=== PATIENT | female | born 1995 | race Caucasian/White ===

== ENCOUNTER 2020-08-11 12:27 | Emergency (ER) | payer OTHER ==
[~2020-08-11] VITALS: Ht 165.1 cm; Wt 101.7 kg
[2020-08-11 13:33] VITALS: BP 126/66
== END 2020-08-11 13:47 | disposition home or self-care (01) ==
LOC: M ED 12:27
DX: M23.92 Unspecified internal derangement of left knee (principal); W01.0XXA Fall on same level from slipping, tripping and stumbling without subsequent striking against object, initial encounter; Y92.9 Unspecified place or not applicable; Y93.9 Activity, unspecified; Y99.9 Unspecified external cause status

== ENCOUNTER → 2022-02-20 | Outpatient (CLI) | payer OTHER ==
[2022-02-20 13:37] LABS: BASO # 0.1 10^3/uL (0.0-0.2); BASO % 0.4 % (0.0-1.0); EOS # 0.2 10^3/uL (0.0-0.5); EOS % 1.7 % (0.0-3.0); HEMATOCRIT 39.7 % (36.0-47.0); HEMOGLOBIN 13.1 g/dl (12.0-15.5); LYMPH # 3.1 10^3/uL (1.5-5.0); LYMPH % 25.1 % (24.0-44.0); MEAN CORPUSCULAR HEMOGLOBIN 26.1 pg (27.0-33.0); MEAN CORPUSCULAR VOLUME 79.2 fl (80.0-96.0); MONO # 0.6 10^3/uL (0.0-0.8); MONO % 4.8 % (2.0-8.0); NEUTROPHILS # 8.4 10^3/uL (1.5-8.5); NEUTROPHILS % 67.6 % (36.0-66.0); PLATELET COUNT, AUTOMATED 246 10^3/uL (150-450); RED BLOOD COUNT 5.01 10^6/uL (4.00-5.40); WHITE BLOOD COUNT 12.4 10^3/uL (4.0-10.0)
[2022-02-20 14:05] LABS: ERYTHROCYTE SEDIMENTATION RATE 26 mm/hr (0-20)
[2022-02-20 14:07] LABS: ALBUMIN 3.4 GM/DL (3.2-5.2); ALT/SGPT 19 U/L (12-78); BILIRUBIN,TOTAL 0.2 MG/DL (0.2-1.0); BLOOD UREA NITROGEN 9 MG/DL (7-18); CALCIUM LEVEL 8.8 MG/DL (8.5-10.1); CARBON DIOXIDE LEVEL 25 MEQ/L (21-32); CHLORIDE LEVEL 109 MEQ/L (98-107); CHOLESTEROL LEVEL 157 MG/DL (<200); CHOLESTEROL RISK RATIO 5.064 (<5); CREATININE FOR GFR 0.41 MG/DL (0.55-1.30); FREE T4 0.81 NG/DL (0.76-1.46); GLOMERULAR FILTRATION RATE > 60.0 (>60); GLUCOSE, FASTING 97 MG/DL (70-100); HDL CHOLESTEROL 31 MG/DL (>40); LDL CHOLESTEROL 66 MG/DL (<100); NON-HDL-C 126 MG/DL; POTASSIUM SERUM 4.4 MEQ/L (3.5-5.1); SODIUM LEVEL 140 MEQ/L (136-145); TOTAL PROTEIN 6.8 GM/DL (6.4-8.2); TRIGLYCERIDES LEVEL 298 MG/DL (<150)
[2022-02-20 14:44] LABS: HEMOGLOBIN A1c 5.7 %
== END ==
LOC: M LAB 12:12
PROVIDERS: ATTEND Nurse Practitioner Adult Health
DX: E66.9 Obesity, unspecified (principal); N64.4 Mastodynia

== ENCOUNTER → 2022-03-08 | Outpatient (CLI) | payer OTHER | LOC: M WHC 12:48 | PROVIDERS: ATTEND Nurse Practitioner Adult Health | DX: N60.11 Diffuse cystic mastopathy of right breast (principal); N64.4 Mastodynia | CPT/HCPCS: 76642; 77066; G0279 ==

== ENCOUNTER 2022-07-29 10:43 | Emergency (ER) | payer OTHER ==
[~2022-07-29] VITALS: Ht 165.1 cm; Wt 101.9 kg
[2022-07-29 10:44] VITALS: BP 117/57
[2022-07-29] MEDS ORDERED: ALBU8.5H (11:20)
[2022-07-29] MEDS ORDERED: VENTAER INH (14:35)
== END 2022-07-29 14:49 | disposition home or self-care (01) ==
LOC: M ED 10:43
DX: B34.8 Other viral infections of unspecified site (principal); R06.2 Wheezing; Z79.51 Long term (current) use of inhaled steroids

== ENCOUNTER 2022-09-18 19:40 | Outpatient (CLI) | payer OTHER ==
[~2022-09-18] VITALS: Ht 167.6 cm; Wt 104.1 kg
[~2022-09-18 19:40] MED LIST: ALBU8.5H; VENTAER INH
[2022-09-18 19:50] VITALS: BP 133/74
[2022-09-18] MEDS ORDERED: ONDANSETRON 4MG 2ML VIAL IV ONE (21:05)
[2022-09-18] MEDS ORDERED: LR 1,000 ML IV ONE (21:05)
[2022-09-18 21:13] LABS: APPEARANCE, URINE MANUAL CLEAR (CLEAR); BILIRUBIN, URINE MANUAL NEGATIVE (NEGATIVE); BLOOD URINE MANUAL NEGATIVE (NEGATIVE); COLOR, URINE MANUAL YELLOW (YELLOW); GLUCOSE, URINE (UA) MANUAL NEGATIVE (NEGATIVE); KETONE, URINE MANUAL NEGATIVE (NEGATIVE); LEUKOCYTE ESTERASE, URINE MAN TRACE (NEGATIVE); NITRITE, URINE MANUAL NEGATIVE (NEGATIVE); PROTEIN, URINE MANUAL NEGATIVE (NEGATIVE); UROBILINOGEN, URINE MANUAL NORMAL (NORMAL)
[2022-09-18 21:21] LABS: RBC, URINE 0-1 /hpf (0-3); WBC, URINE 0-1 /hpf (0-3)
[2022-09-18 21:22] LABS: BACTERIA, URINE NONE SEEN; HYALINE CAST, URINE NONE SEEN /lpf (0-1); MUCUS, URINE SMALL AMOUNT (NEGATIVE); SQUAMOUS EPITHELIAL CELL URINE MOD AMOUNT /hpf (SMALL AMT)
[2022-09-18] MEDS ORDERED: PRENTAB9 PO (22:13)
[2022-09-18] MEDS ORDERED: CETI5SOL3 PO (22:13)
[2022-09-18] MEDS ORDERED: ACET-907 PO (22:13)
[2022-09-18] MEDS ORDERED: ASPI81CH33 PO (22:13)
[2022-09-18 22:58] VITALS: BP 130/66
== END 2022-09-18 23:18 | disposition home or self-care (01) ==
LOC: M LDO 19:40
PROVIDERS: ATTEND Advanced Practice Midwife
DX: O26.892 Other specified pregnancy related conditions, second trimester (principal); M54.59 Other low back pain; N39.3 Stress incontinence (female) (male); Z87.59 Personal history of other complications of pregnancy, childbirth and the puerperium; Z87.891 Personal history of nicotine dependence; Z79.82 Long term (current) use of aspirin; Z3A.26 26 weeks gestation of pregnancy
CPT/HCPCS: 59025; 76775; 76817; 81000; 81015; 87070; 87086; 96360; 96374; G0378; G0463; J2405

== ENCOUNTER 2022-10-01 20:45 | Emergency (ER) | payer OTHER ==
[~2022-10-01] VITALS: Ht 165.1 cm; Wt 105.1 kg
[~2022-10-01 20:45] MED LIST changes: +ACET-907 PO; +ASPI81CH33 PO; +CETI5SOL3 PO; +PRENTAB9 PO
[2022-10-01 23:17] VITALS: BP 131/61
== END 2022-10-01 23:34 | disposition left against medical advice (07) ==
LOC: M ED 20:45
DX: Z53.21 Procedure and treatment not carried out due to patient leaving prior to being seen by health care provider (principal)

== ENCOUNTER 2022-10-10 22:21 | Outpatient (CLI) | payer OTHER ==
[~2022-10-10] VITALS: Ht 165.1 cm; Wt 106.5 kg
[2022-10-10 22:56] VITALS: BP 128/74
[2022-10-10] MEDS ORDERED: ONDANSETRON 4MG TAB PO ONE (23:05)
[2022-10-10] MEDS ORDERED: ACETAMINOPHEN 500 MG TAB PO ONE (23:15)
[2022-10-11] MEDS ORDERED: CYCLOBENZAPRINE 10MG TABLET PO ONE (01:05)
[2022-10-11 01:42] VITALS: BP 113/55
[2022-10-11 03:59] VITALS: BP 100/58
== END 2022-10-11 09:43 | disposition home or self-care (01) ==
LOC: M LDO 22:21
PROVIDERS: ATTEND Specialist
DX: O26.893 Other specified pregnancy related conditions, third trimester (principal); R10.2 Pelvic and perineal pain; Y92.9 Unspecified place or not applicable; Y93.9 Activity, unspecified; Y99.9 Unspecified external cause status; Z3A.29 29 weeks gestation of pregnancy
CPT/HCPCS: 36415; 59025; 76815; 85460; G0378; G0463

== ENCOUNTER 2022-11-09 15:36 | Outpatient (CLI) | payer OTHER ==
[~2022-11-09] VITALS: Ht 165.1 cm; Wt 105.5 kg
[2022-11-09] MEDS ORDERED: PREN1CHW4 PO (15:57)
[2022-11-09] MEDS ORDERED: ACET-897 PO (15:58)
[2022-11-09] MEDS ORDERED: RANI15TA PO (16:01)
[2022-11-09] MEDS ORDERED: ZYRTTAB8 PO (16:01)
[2022-11-09] MEDS ORDERED: REGL10TA6 PO (16:03)
[2022-11-09] MEDS ORDERED: HOME MED LIST COMPLETE! XX SCH (16:05)
[2022-11-09 16:07] VITALS: BP 120/56
[2022-11-09] MEDS ORDERED: INSU100I14 SQ (16:15)
[2022-11-09] MEDS ORDERED: INSUN SC ×2 (16:15→16:16)
== END 2022-11-09 17:25 | disposition home or self-care (01) ==
LOC: M LDO 15:36
PROVIDERS: ATTEND Obstetrics & Gynecology
DX: O36.8130 Decreased fetal movements, third trimester, not applicable or unspecified (principal); Z3A.33 33 weeks gestation of pregnancy
CPT/HCPCS: 59025; G0463

== ENCOUNTER 2022-11-22 22:18 | Outpatient (CLI) | payer OTHER ==
[~2022-11-22] VITALS: Ht 165.1 cm; Wt 107.5 kg
[~2022-11-22 22:18] MED LIST changes: +ACET-897 PO; +INSU100I14 SQ; +INSUN SC; +PREN1CHW4 PO; +RANI15TA PO; +REGL10TA6 PO; +ZYRTTAB8 PO
[2022-11-22 22:41] VITALS: BP 141/75
[2022-11-22] MEDS ORDERED: FAMO10TA53 PO (23:00)
[2022-11-22] MEDS ORDERED: INSU100I14 SQ (23:08)
[2022-11-23] MEDS ORDERED: MORPHINE 10 MG/ML 1ML VIAL IM ONE (00:20)
[2022-11-23] MEDS ORDERED: LR 1,000 ML IV ONE (00:20)
[2022-11-23] MEDS ORDERED: MORPHINE 10 MG/ML 1ML VIAL IV ONE (00:20)
[2022-11-23] MEDS ORDERED: LR 1,000 ML IV SCH (00:20)
[2022-11-23] MEDS ORDERED: PROMETHAZINE 25MG/ML 1ML VIAL IV ONE (00:20)
[2022-11-23 01:31] VITALS: BP 127/60
[2022-11-23 02:18] VITALS: BP 125/68
[2022-11-23 03:03] VITALS: BP 130/65
[2022-11-23 03:47] VITALS: BP 107/61
[2022-11-23 04:33] VITALS: BP 114/64
[2022-11-23 07:10] VITALS: BP 127/78
== END 2022-11-23 08:05 | disposition home or self-care (01) ==
LOC: M LDO 22:18
PROVIDERS: ATTEND Advanced Practice Midwife
DX: O24.414 Gestational diabetes mellitus in pregnancy, insulin controlled (principal); O60.03 Preterm labor without delivery, third trimester; Z87.59 Personal history of other complications of pregnancy, childbirth and the puerperium; Z3A.35 35 weeks gestation of pregnancy
CPT/HCPCS: 59025; 96374; 96375; G0378; G0463

== ENCOUNTER 2022-11-26 02:20 | Outpatient (CLI) | payer OTHER ==
[~2022-11-26] VITALS: Ht 165.1 cm; Wt 107.8 kg
[~2022-11-26 02:20] MED LIST changes: +FAMO10TA53 PO
[2022-11-26 02:38] VITALS: BP 143/76
[2022-11-26 03:14] VITALS: BP 121/59
== END 2022-11-26 07:43 | disposition home or self-care (01) ==
LOC: M LDO 02:20
PROVIDERS: ATTEND Advanced Practice Midwife
DX: O24.414 Gestational diabetes mellitus in pregnancy, insulin controlled (principal); O60.03 Preterm labor without delivery, third trimester; Z79.4 Long term (current) use of insulin; Z86.16 Personal history of COVID-19; Z87.59 Personal history of other complications of pregnancy, childbirth and the puerperium; Z3A.36 36 weeks gestation of pregnancy
CPT/HCPCS: 59025; G0378; G0463

== ENCOUNTER → 2022-12-12 | Outpatient (CLI) | payer OTHER ==
[~2022-12-12] MED LIST changes: +ISOVUE-370 76% 100ML VIAL As Ordered ONE
== END ==
LOC: M RAD 13:54
PROVIDERS: ATTEND Registered Nurse
DX: I26.99 Other pulmonary embolism without acute cor pulmonale (principal); M79.604 Pain in right leg

== ENCOUNTER → 2023-02-25 | Outpatient (CLI) | payer OTHER ==
[~2023-02-25] MED LIST changes: -ISOVUE-370 76% 100ML VIAL As Ordered ONE
[2023-02-25 17:50] LABS: RHEUMATOID FACTOR QUANT 8.4 IU/ML (<14)
[2023-02-25 17:51] LABS: FOLATE 18.8 NG/ML (>5.4); THYROID STIMULATING HORMONE 1.573 uIU/ML (0.55-4.78); TOTAL 25(OH) VITAMIN D 17.4 NG/ML (20.0-100.0)
[2023-02-25 18:21] LABS: HEMOGLOBIN A1c 5.3 % (4.0-6.0)
== END ==
LOC: M LAB 16:15
PROVIDERS: ATTEND Psychiatry & Neurology Neurology
DX: E11.9 Type 2 diabetes mellitus without complications (principal); R20.0 Anesthesia of skin

== ENCOUNTER → 2023-02-25 | Outpatient (CLI) | payer OTHER | LOC: M RAD 16:12 | PROVIDERS: ATTEND Physician Assistant Medical | DX: J32.0 Chronic maxillary sinusitis (principal); J32.2 Chronic ethmoidal sinusitis ==